=== PATIENT | female | born 1970 | race Caucasian/White ===

== ENCOUNTER 2020-09-14 07:21 | Day surgery (SDC) | payer BC ==
[~2020-09-14 07:21] MED LIST: Glycopyrrolate 0.2 MG/ML SDV ONE; Lactated Ringers 1,000 ML IV SCH; Lidocaine 2% 5 ML SDV ONE; Midazolam 1 MG/ML 2 ML SDV ONE; Ondansetron 4 MG/2 ML SDV ONE; Propofol 200 MG/20 ML SDV ONE; Rocuronium Bromide 50 MG/5 ML Syringe ONE; Sodium Chloride 0.9% 10 ML SDV IV PRN; Sodium Chloride 0.9% 10 ML Syringe FLUSH PRN; Sodium Chloride 0.9% 2.5 ML Syringe FLUSH PRN; ceFAZolin 1 GM in Premix Bag 1 BAG IV ONE; fentaNYL 250 MCG/5 ML SDV ONE
--- NOTE | 2020-09-14 08:06 | PCM.PREANE ---
Preanesthetic Assessment - Anesthesia/Transfusion/Family Hx Anesthesia History: Prior Anesthesia Without Reaction Family History of Anesthesia Reaction: No Transfusion History: No Prior Transfusion(s) - Review of Systems General: No Symptoms Pulmonary: No Symptoms Cardiovascular: No Symptoms Gastrointestinal: No Symptoms Neurological: No Symptoms Other: Reports: None - Physical Assessment NPO Status Date: 09/13/20 Vital Signs: Last Vital Signs Temp 99.0 F 09/14/20 07:25 Pulse 76 09/14/20 07:25 Resp 16 09/14/20 07:25 BP 115/78 09/14/20 07:25 Pulse Ox 100 09/14/20 07:25 Height: 5 ft 4 in Weight: 77.111 kg ASA Class: 2 Mental Status: Alert & Oriented x3 Airway Class: Mallampati = 2 Dentition: Reports: Normal Dentition ROM/Head Extension: Full Lungs: Clear to Auscultation, Normal Respiratory Effort Cardiovascular: Regular Rate, Regular Rhythm - Allergies Allergies/Adverse Reactions: Allergies Allergy/AdvReac Type Severity Reaction Status Date / Time No Known Allergies Allergy Verified 09/08/20 09:28 - Blood Blood Available: No - Anesthesia Plan Pre-Op Medication Ordered: None - Acknowledgements Anesthesia Type Planned: General Anesthesia Pt an Appropriate Candidate for the Planned Anesthesia: Yes Alternatives and Risks of Anesthesia Discussed w Pt/Guardian: Yes Pt/Guardian Understands and Agrees with Anesthesia Plan: Yes PreAnesthesia Questionnaire HEENT History: Reports: Impaired Vision Other HEENT History: wears glasses Cardiovascular History: Reports: Hypertension Respiratory History: Reports: None Gastrointestinal History: Reports: None Genitourinary History: Reports: None [employer]ING ENGINE[employer] CHIEF History: Reports: Musculoskeletal History: Reports: Fracture Other Musculoskeletal History: right ankle Neurological History: Reports: None Psychiatric History: Reports: None Endocrine/Metabolic History: Reports: None Hematologic History: Reports: None Immunologic History: Reports: None Oncologic (Cancer) History: Reports: Breast Other Oncologic History: right breast; had bilateral mastectomy Dermatologic History: Reports: None - Infectious Disease History Infectious Disease History: Reports: None - Past Surgical History HEENT Surgical History: Reports: None Cardiovascular Surgical History: Reports: None GI Surgical History: Reports: None Female Surgical History: Reports: Breast Implant, Section, Mastectomy Other Female Surgeries/Procedures: states had bilateral mastectomy 2019 due to cancer right breast ; had bilateral breast implants 2019 Endocrine Surgical History: Reports: None Musculoskeletal Surgical History: Reports: None Oncologic Surgical History: Reports: Mastectomy Other Oncologic Surgeries/Procedures: bilateral mastectomy 2019 - SUBSTANCE USE Tobacco Use Status *Q: Never Tobacco User - HOME MEDS Home Medications: Home Meds Losartan [Cozaar] 1 tab PO DAILY 09/08/20 [History] Magnesium Oxide/Magnesium [Magnesium] 300 mg PO DAILY 09/08/20 [History] Tamoxifen Citrate 1 tab PO DAILY 09/08/20 [History] - CURRENT (IN HOUSE) MEDS Current Meds: Current Medications Lactated Ringer's (Ringers, Lactated) 1,000 mls @ 125 mls/hr IV ASDIRECTED REED Sodium Chloride (Saline Flush) 10 ml FLUSH ASDIRECTED PRN PRN Reason: Keep Vein Open Sodium Chloride (Saline Flush) 2.5 ml FLUSH ASDIRECTED PRN PRN Reason: Keep Vein Open Sodium Chloride (Normal Saline) 10 ml IV ASDIRECTED PRN PRN Reason: IV Use Discontinued Medications Fentanyl (Sublimaze) Confirm Administered Dose 250 mcg .ROUTE .STK-MED ONE Stop: 09/14/20 07:07 Glycopyrrolate (Robinul) Confirm Administered Dose 0.4 mg .ROUTE .STK-MED ONE Stop: 09/14/20 07:06 Cefazolin Sodium/Dextrose 1 gm (/ Premix) 50 mls @ 100 mls/hr IV ONETIME ONE Stop: 09/14/20 05:29 Lidocaine (Xylocaine-Mpf 2%) Confirm Administered Dose 5 ml .ROUTE .STK-MED ONE Stop: 09/14/20 07:06 Midazolam HCl (Versed 1 Mg/Ml) Confirm Administered Dose 2 mg .ROUTE .STK-MED ONE Stop: 09/14/20 07:07 Ondansetron HCl (Zofran) Confirm Administered Dose 4 mg .ROUTE .STK-MED ONE Stop: 09/14/20 07:06 Propofol (Diprivan 20 Ml) Confirm Administered Dose 200 mg .ROUTE .STK-MED ONE Stop: 09/14/20 07:06 Rocuronium Cincinnatus (Rocuronium Cincinnatus) Confirm Administered Dose 50 mg .ROUTE .STK-MED ONE Stop: 09/14/20 07:06
[2020-09-14 08:26] LABS: BLOOD UREA NITROGEN,BUN 10 mg/dL (7.0-18.0); CARBON DIOXIDE,CO2 29.8 mmol/L (21.0-32.0); CHLORIDE,CL 107 mmol/L (98-107); GLUCOSE RANDOM 91 mg/dL (74-106); POTASSIUM,K 4.2 mmol/L (3.5-5.1); SODIUM,NA 143 mmol/L (136-145)
[2020-09-14] MEDS ORDERED: Lidocaine 1% 20 ML MDV ONE (08:34)
[2020-09-14] MEDS ORDERED: Fluorescein 5 ML Vial ONE (09:51)
[2020-09-14] MEDS ORDERED: Bupivacaine 0.25% 10 ML SDV ONE (09:51)
[2020-09-14] MEDS ORDERED: Methylene Blue 50 MG/10 ML Ampule ONE (09:51)
[2020-09-14] MEDS ORDERED: ceFAZolin 1 GM Vial ONE (10:15)
[2020-09-14] MEDS ORDERED: Sodium Chloride 0.9% 20 ML ONE (10:15)
[2020-09-14] MEDS ORDERED: ePHEDrine 50 MG/ML SDV ONE (10:21)
[2020-09-14] MEDS ORDERED: Furosemide 40 MG/4 ML VIAL ONE (10:31)
[2020-09-14] MEDS ORDERED: fentaNYL 100 MCG/2 ML SDV ONE (10:45)
[2020-09-14] MEDS ORDERED: HYDROmorphone 2 MG/ML Syringe ONE (11:01)
[2020-09-14] MEDS ORDERED: Atropine 0.1 MG/ML 10 ML Syringe IVPUSH PRN ×2 (11:08)
[2020-09-14] MEDS ORDERED: 50% Dextrose in Water 50 ML Syringe IVPUSH PRN (11:08)
[2020-09-14] MEDS ORDERED: Albuterol 0.083% 2.5 MG/3 ML Neb Soln NEB PRN (11:08)
[2020-09-14] MEDS ORDERED: Naloxone 0.4 MG/ML Syringe IVPUSH PRN (11:08)
[2020-09-14] MEDS ORDERED: EPINEPHrine 1:10,000 1 MG/10 ML Syringe IVPUSH PRN (11:08)
[2020-09-14] MEDS ORDERED: fentaNYL 100 MCG/2 ML SDV IVPUSH PRN (11:08)
[2020-09-14] MEDS ORDERED: Metoprolol Tartrate 5 MG/5 ML SDV ONE (11:15)
[2020-09-14] MEDS ORDERED: Belladonna Alkaloids/Opium 16.2-30 MG Supp RECTAL PRN (12:13)
[2020-09-14] MEDS ORDERED: Morphine 4 MG/ML Syringe IVPUSH PRN (12:13)
[2020-09-14] MEDS ORDERED: Acetaminophen/oxyCODONE 325-5 MG Tab PO PRN (12:13)
[2020-09-14] MEDS ORDERED: Ondansetron 4 MG/2 ML SDV IVPUSH PRN (12:13)
[2020-09-14] MEDS ORDERED: Ketorolac 30 MG/ML SDV IVPUSH ONE (12:13)
[2020-09-14] MEDS ORDERED: Promethazine 25 MG/ML SDV IM PRN (12:13)
[2020-09-14] MEDS ORDERED: Acetaminophen 1,000 MG in Premix Bag 1 BAG IV ONE (12:24)
--- NOTE | 2020-09-14 12:25 | PCM.OPNOTE ---
- General Post-Op/Procedure Note Date of Surgery/Procedure: 09/14/20 Operative Procedure(s): LAVH/BSO/cysoscopy Findings: Mobile uterus, small left ovarian cyst. Bilateral patent ureters Pre Op Diagnosis: Endometriosis. Personal history of breast cancer Post-Op Diagnosis: Same Anesthesia Technique: General ET Tube Primary Surgeon: Kierra Roque Tip Tester: Belen Martinez Fluid Replacement, Intraop: 1,900 EBL in mLs: 100 Complications: none known Condition: Good Free Text/Narrative:: Dictation [id number]
--- NOTE | 2020-09-14 12:59 | PCM.POSTAN ---
POST ANESTHESIA ASSESSMENT - MENTAL STATUS Mental Status: Alert, Oriented - VITAL SIGNS Vital Signs: Last Vital Signs Temp 97.9 F 09/14/20 12:10 Pulse 93 09/14/20 12:50 Resp 12 09/14/20 12:50 BP 111/61 09/14/20 12:50 Pulse Ox 96 09/14/20 12:50 - RESPIRATORY Respiratory Status: Respiratory Rate WNL, Airway Patent, O2 Saturation Stable - CARDIOVASCULAR CV Status: Pulse Rate WNL, Blood Pressure Stable - GASTROINTESTINAL GI Status: No Symptoms - POST OP HYDRATION Hydration Status: Adequate & Stable
[2020-09-14] MEDS: Lactated Ringers 1,000 ML IV SCH ×2 (13:17→21:59)
--- NOTE | 2020-09-14 15:24 | OR ---
SURGEON: Kierra Roque M.D. DATE OF PROCEDURE: 09/14/2020 PREOPERATIVE DIAGNOSES: 1. Endometriosis. 2. Personal history of breast cancer. POSTOPERATIVE DIAGNOSES: 1. Endometriosis. 2. Personal history of breast cancer. PROCEDURE: Laparascopic assisted vaginal hysterectomy with bilateral salpingoophorectomy with cystoscopy. PRIMARY SURGEON: Kierra Roque MD ANESTHESIA: General endotracheal anesthesia. FLUIDS: 1900 mL of crystalloid. ESTIMATED BLOOD LOSS: 100 mL. COMPLICATIONS: None known. FINDINGS: Mobile uterus, small left ovarian cyst, bilateral patent ureters. DISPOSITION: The patient to PACU, specimen to pathology. PROCEDURE DETAILS: Janett is a 49-year-old female who has known history of endometriosis, previously had been controlled with continuous suppression of OCP. However, in the past year, she was diagnosed with breast cancer, underwent bilateral mastectomy, and at this time can no longer be on any hormone therapy. Given her age, ongoing difficulties with discomfort with endometriosis and now her personal history of breast cancer, she would like to proceed with definitive intervention in the form of hysterectomy. She would like both tubes and ovaries removed at the time of this procedure. Risks of procedure have been discussed with her. Proper consent obtained. The patient was taken to the operating room where she underwent general endotracheal anesthesia. Was placed in modified dorsal lithotomy position. Was prepped and draped in usual sterile fashion. SCDs to lower extremities. Galaviz to gravity. A time-out was performed. Vaginally, speculum was introduced in the vagina. Posterior lip of the cervix was grasped. A uterine HUMI manipulator was gently introduced. Balloon insufflated. Instruments other than the uterine manipulator were now removed from the vagina. Gloves changed. Attention turned abdominally. Infraumbilically, 0.25% Marcaine was introduced. Please see nurse's notes for total amount of local dispensed during the procedure. A 5 mm infraumbilical midline skin incision was created. Anterior abdominal wall was tented upward. A Veress needle was introduced. Saline hanging drop test was performed. Pneumoperitoneum was achieved. The Veress needle removed. Trocar was introduced. Laparoscope was introduced and peritoneal contents were identified. The right ureter followed by the left ureter was able to be seen peristalsing away from the operative field. Therefore, the left fallopian tube- ovarian complex was grasped and the infundibulopelvic ligament was secured with the LigaSure. Under direct visualization, left lower quadrant followed by right lower quadrant trocars were placed after prepping these regions with 0.25% Marcaine and creating 5 mm skin incision. At this juncture, the LigaSure was introduced and infundibulopelvic ligament was able to be secured, cauterized, and transected followed by the medial leaf of the broad ligament, down through the round ligament, and to the edge of the cardinal ligament. At this point, I was able to create a bladder flap and mobilized the bladder away from the lower uterine segment. There were some adhesions due to the previous hysterectomy, but overall they were able to be lysed fairly easily. A further pedicle on the left side was performed securing the cardinal ligament, down to the base of the cardinal ligament. In similar fashion, this was performed on the patient's right side. The right infundibulopelvic ligament was able to be secured, cauterized, transected through the medial leaf of the broad ligament, through the round ligament, down to the base of the cardinal ligament. Remainder of the bladder flap was able to be created. The bladder was now mobilized nicely away from the lower uterine segment and cervix. The cardinal ligament was able to be secured, cauterized, and transected. The region of the bladder flap was now nicely hydrodissected to further mobilize away from the lower uterine segment and from the cervix. Attention was now turned vaginally. The laparoscopic instruments were removed. Pneumoperitoneum was released. The patient's hips and knees were now further flexed. A weighted specimen was introduced as well as anterior Katrina. Cervix was grasped with Jesus clamp, circumcised with Bovie cautery. Posteriorly, the cervical mucosa was dissected away from underlying peritoneum. Peritoneum was entered sharply. Longer weighted speculum replaced the shorter. In a similar fashion, this was performed to the patient's anterior cul-de-sac. [place] was utilized to mobilize bladder away from the lower uterine segment. The bladder was now released as it had been backfilled with methylene blue. The uterosacral ligament on either side was able to be secured with Shaila clamp, transected, and suture ligated with 2-0 Vicryl. Further pedicle on either side was able to be secured, transected, and suture ligated with 2-0 Vicryl. Bilateral fallopian tubes and ovaries now removed and will be sent to pathology for further analysis. The uterosacral ligaments on either side were plicated to the vaginal apex. The pedicles were inspected and found to be hemostatic. The cuff was now closed using 0 Vicryl in continuous running locked fashion. The cuff was inspected, found to be hemostatic. IV fluorescein and Lasix had been delivered via IV. The Galaviz bulb was now deflated and the Galaviz catheter was removed. Cystoscope was introduced using normal saline as distention media. I was able to visualize the dome of the bladder followed by the trigone. The right ureteral orifice followed by the left ureteral orifice was able to be visualized with the fluorescein dyed urine seen streaming from them helping to ensure ureteral patency. The cystoscope was now removed after draining the bladder and the Galaviz catheter was replaced. Vaginal cuff once again inspected, found to be hemostatic. Attention was turned abdominally. The gloves have been changed. Pneumoperitoneum was once again achieved. The pelvis now copiously irrigated, suction dried. Region along the right uterosacral pedicle was oozing and was able to be cauterized, hemostasis thereafter evident. Region along the posterior peritoneum cuff line had some oozing as well, this was also cauterized. Velma was then utilized along the pelvic floor and along the edge of the pedicles. Hemostasis appeared evident. Relief pressure was decreased to 5 mmHg. Hemostasis once again evident. The pneumoperitoneum was now released. The right and left lower quadrant trocars removed under direct visualization. The laparoscope was removed followed by the infraumbilical trocar after releasing as much of the pneumoperitoneum as possible. The skin edges were reapproximated using 3-0 Monocryl in subcuticular fashion. Sponge, instrument, and needle counts were correct x2. The patient tolerated the procedure well overall. She will go to PACU in stable condition, specimen to pathology. SUSAN / OXANA /[id number] MARKUS
[2020-09-14] MEDS: Acetaminophen/oxyCODONE 325-5 MG Tab PO PRN ×2 (17:15→21:53)
--- NOTE | 2020-09-14 17:35 | PCM.SN.2 ---
- Free Text/Narrative Note: Patient resting comfortably. Pain controlled and denies nausea. Explained intraoperative findings and procedure in detail. Continue postoperative cares. Encouraged to ambulate this evening.
[2020-09-14] MEDS: Ketorolac 30 MG/ML SDV IVPUSH PRN (18:35)
[2020-09-14] MEDS: Docusate Sodium 100 MG Cap PO SCH (21:53)
[2020-09-15] MEDS: Ketorolac 30 MG/ML SDV IVPUSH PRN (01:13)
[2020-09-15] MEDS: Acetaminophen/oxyCODONE 325-5 MG Tab PO PRN ×2 (06:24→10:51)
--- NOTE | 2020-09-15 07:28 | PCM48HPAN ---
Post Anesthesia Note - EVALUATION WITHIN 48HRS OF ANESTHETIC Vital Signs in Normal Range: Yes Patient Participated in Evaluation: Yes Respiratory Function Stable: Yes Airway Patent: Yes Cardiovascular Function Stable: Yes Hydration Status Stable: Yes Pain Control Satisfactory: Yes Nausea and Vomiting Control Satisfactory: Yes Mental Status Recovered: Yes Vital Signs: Last Vital Signs Temp 36.3 C 09/15/20 05:00 Pulse 89 09/15/20 05:00 Resp 15 09/15/20 05:00 BP 95/53 L 09/15/20 05:00 Pulse Ox 99 09/15/20 05:00
[2020-09-15 07:59] LABS: BLOOD UREA NITROGEN,BUN 5 mg/dL (7.0-18.0); CARBON DIOXIDE,CO2 27.2 mmol/L (21.0-32.0); CHLORIDE,CL 108 mmol/L (98-107); GLUCOSE RANDOM 109 mg/dL (74-106); POTASSIUM,K 3.7 mmol/L (3.5-5.1); SODIUM,NA 142 mmol/L (136-145)
[2020-09-15] MEDS: Docusate Sodium 100 MG Cap PO SCH (08:31)
--- NOTE | 2020-09-15 08:46 | PCM.SURGPN ---
- General Info Date of Service: 09/15/20 POD#: 1 Functional Status: Reports: Pain Controlled, Tolerating Diet - Review of Systems General: Reports: Fatigue. Denies: Fever, Weakness Pulmonary: Denies: Shortness of Breath Cardiovascular: Denies: Chest Pain, Palpitations, Lightheadedness Gastrointestinal: Reports: Abdominal Pain (minimal--well controlled surgical pain). Denies: Nausea, Vomiting Genitourinary: Reports: No Symptoms Musculoskeletal: Reports: No Symptoms Skin: Reports: No Symptoms Neurological: Reports: No Symptoms Psychiatric: Reports: No Symptoms - Patient Data Vitals - Most Recent: Last Vital Signs Temp 36.4 C 09/15/20 08:21 Pulse 99 09/15/20 08:21 Resp 18 09/15/20 08:21 BP 99/60 09/15/20 08:21 Pulse Ox 99 09/15/20 05:00 Weight - Most Recent: 77.111 kg I&O - Last 24 Hours: Intake & Output 09/14/20 09/15/20 09/15/20 22:59 06:59 14:59 Intake Total 300 1500 Output Total 300 1800 Balance 0 -300 Lab Results Last 24 Hrs: Laboratory Results - last 24 hr 09/14/20 09/15/20 09/15/20 Range/Units 07:51 07:10 07:10 WBC 11.35 H (4.0-11.0) K/uL RBC 3.20 L (4.30-5.90) M/uL Hgb 9.9 L (12.0-16.0) g/dL Hct 31.4 L (36.0-46.0) % MCV 98.1 H (80.0-98.0) fL MCH 30.9 (27.0-32.0) pg MCHC 31.5 (31.0-37.0) g/dL RDW Std Deviation 49.1 (28.0-62.0) fl RDW Coeff of [place] 14 (11.0-15.0) % Plt Count 246 (150-400) K/uL MPV 9.70 (7.40-12.00) fL Neut % (Auto) 70.7 (48.0-80.0) % Lymph % (Auto) 22.7 (16.0-40.0) % Jerome % (Auto) 5.6 (0.0-15.0) % Eos % (Auto) 0.9 (0.0-7.0) % Baso % (Auto) 0.1 (0.0-1.5) % Neut # (Auto) 8.0 H (1.4-5.7) K/uL Lymph # (Auto) 2.6 H (0.6-2.4) K/uL Jerome # (Auto) 0.6 (0.0-0.8) K/uL Eos # (Auto) 0.1 (0.0-0.7) K/uL Baso # (Auto) 0.0 (0.0-0.1) K/uL Nucleated RBC % 0.0 /100WBC Nucleated RBCs # 0 K/uL Sodium 142 (136-145) mmol/L Potassium 3.7 (3.5-5.1) mmol/L Chloride 108 H (98-107) mmol/L Carbon Dioxide 27.2 (21.0-32.0) mmol/L BUN 5 L (7.0-18.0) mg/dL Creatinine 0.8 (0.6-1.0) mg/dL Est Cr Clr Drug Dosing 73.46 mL/min Estimated GFR (MDRD) > 60.0 ml/min Glucose 109 H (74-106) mg/dL Calcium 8.1 L (8.5-10.1) mg/dL Blood Type A POSITIVE Antibody Screen NEGATIVE Med Orders - Current: Current Medications Belladonna Alkaloids/Opium (B & O Supprettes No. 15a) 1 supp RECTAL Q4H PRN PRN Reason: Abdominal Pain Docusate Sodium (Colace) 100 mg PO BID [facility] Last Admin: 09/15/20 08:31 Dose: 100 mg Documented by: Lactated Ringer's (Ringers, Lactated) 1,000 mls @ 125 mls/hr IV ASDIRECTED [facility] Last Admin: 09/14/20 21:59 Dose: 125 mls/hr Documented by: Ketorolac Tromethamine (Toradol) 30 mg IVPUSH Q6H PRN PRN Reason: Pain (severe 7-10) Stop: 09/19/20 12:14 Last Admin: 09/15/20 01:13 Dose: 30 mg Documented by: Morphine Sulfate (Morphine) 4 mg IVPUSH Q2H PRN PRN Reason: Pain (severe 7-10) Ondansetron HCl (Zofran) 4 mg IVPUSH Q6H PRN PRN Reason: Nausea/Vomiting Last Admin: 09/14/20 14:41 Dose: 4 mg Documented by: Oxycodone/Acetaminophen (Percocet 325-5 Mg) 1 tab PO Q4H PRN PRN Reason: Pain (moderate 4-6) Last Admin: 09/15/20 06:24 Dose: 1 tab Documented by: Oxycodone/Acetaminophen (Percocet 325-5 Mg) 2 tab PO Q4H PRN PRN Reason: Pain (moderate 4-6) Promethazine HCl (Phenergan) 25 mg IM Q6H PRN PRN Reason: Nausea/Vomiting Last Admin: 09/14/20 18:28 Dose: 25 mg Documented by: Sodium Chloride (Saline Flush) 10 ml FLUSH ASDIRECTED PRN PRN Reason: Keep Vein Open Sodium Chloride (Saline Flush) 2.5 ml FLUSH ASDIRECTED PRN PRN Reason: Keep Vein Open Sodium Chloride (Normal Saline) 10 ml IV ASDIRECTED PRN PRN Reason: IV Use Discontinued Medications Albuterol (Proventil Neb Soln) 2.5 mg NEB ONETIME PRN PRN Reason: Wheezing Atropine Sulfate (Atropine 0.1 Mg/Ml) 0.5 mg IVPUSH ASDIRECTED PRN PRN Reason: Hypo-perfusion Atropine Sulfate (Atropine 0.1 Mg/Ml) 1 mg IVPUSH ASDIRECTED PRN PRN Reason: Hypo-Perfusion Bupivacaine HCl (Sensorcaine-Mpf 0.25%) Confirm Administered Dose 20 ml .ROUTE .STK-MED ONE Stop: 09/14/20 09:52 Cefazolin Sodium (Ancef) Confirm Administered Dose 1 gm .ROUTE .STK-MED ONE Stop: 09/14/20 10:16 Dextrose/Water (Dextrose 50% In Water) 50 ml IVPUSH ASDIRECTED PRN PRN Reason: Hypoglycemia Ephedrine Sulfate (Ephedrine Sulfate) Confirm Administered Dose 50 mg .ROUTE .STK-MED ONE Stop: 09/14/20 10:22 Epinephrine HCl (Epinephrine 1:10,000) 1 mg IVPUSH ASDIRECTED PRN PRN Reason: ACLS Guidelines Fentanyl (Sublimaze) Confirm Administered Dose 250 mcg .ROUTE .STK-MED ONE Stop: 09/14/20 07:07 Fentanyl (Sublimaze) Confirm Administered Dose 100 mcg .ROUTE .STK-MED ONE Stop: 09/14/20 10:46 Fentanyl (Sublimaze) 50 - 100 mcg IVPUSH Q5M PRN PRN Reason: Pain Fluorescein Sodium (Ak-Fluor) Confirm Administered Dose 5 ml .ROUTE .STK-MED ONE Stop: 09/14/20 09:52 Furosemide (Lasix) Confirm Administered Dose 40 mg .ROUTE .STK-MED ONE Stop: 09/14/20 10:32 Glycopyrrolate (Robinul) Confirm Administered Dose 0.4 mg .ROUTE .STK-MED ONE Stop: 09/14/20 07:06 Hydromorphone HCl (Dilaudid) Confirm Administered Dose 2 mg .ROUTE .STK-MED ONE Stop: 09/14/20 11:02 Cefazolin Sodium/Dextrose 1 gm (/ Premix) 50 mls @ 100 mls/hr IV ONETIME ONE Stop: 09/14/20 05:29 Last Admin: 09/14/20 13:05 Dose: Not Given Documented by: Lactated Ringer's (Ringers, Lactated) 1,000 mls @ 125 mls/hr IV ASDIRECTED [facility] Last Admin: 09/14/20 08:40 Dose: 125 mls/hr Documented by: Sodium Chloride (Normal Saline) Confirm Administered Dose 20 mls @ as directed .ROUTE .STK-MED ONE Stop: 09/14/20 10:16 Acetaminophen 1,000 mg/ Premix 100 mls @ 400 mls/hr IV NOW ONE Stop: 09/14/20 12:38 Last Admin: 09/14/20 13:05 Dose: Not Given Documented by: Acetaminophen (Ofirmev) Confirm Administered Dose 100 mls @ as directed .ROUTE .STK-MED ONE Stop: 09/14/20 12:33 Last Admin: 09/14/20 12:38 Dose: 400 mls/hr Documented by: Ketorolac Tromethamine (Toradol) 30 mg IVPUSH ONETIME ONE Stop: 09/14/20 12:14 Last Admin: 09/14/20 12:37 Dose: 30 mg Documented by: Lidocaine (Xylocaine-Mpf 2%) Confirm Administered Dose 5 ml .ROUTE .STK-MED ONE Stop: 09/14/20 07:06 Lidocaine HCl (Xylocaine 1%) Confirm Administered Dose 20 ml .ROUTE .STK-MED ONE Stop: 09/14/20 08:35 Last Admin: 09/14/20 13:05 Dose: Not Given Documented by: Methylene Blue (Provayblue) Confirm Administered Dose 50 mg .ROUTE .STK-MED ONE Stop: 09/14/20 09:52 Metoprolol Tartrate (Lopressor) Confirm Administered Dose 5 mg .ROUTE .STK-MED ONE Stop: 09/14/20 11:16 Midazolam HCl (Versed 1 Mg/Ml) Confirm Administered Dose 2 mg .ROUTE .STK-MED ONE Stop: 09/14/20 07:07 Naloxone HCl (Narcan) 0.1 mg IVPUSH ASDIRECTED PRN PRN Reason: Respiratory Depression Ondansetron HCl (Zofran) Confirm Administered Dose 4 mg .ROUTE .STK-MED ONE Stop: 09/14/20 07:06 Propofol (Diprivan 20 Ml) Confirm Administered Dose 200 mg .ROUTE .STK-MED ONE Stop: 09/14/20 07:06 Rocuronium [place] (Rocuronium [place]) Confirm Administered Dose 50 mg .ROUTE .STK-MED ONE Stop: 09/14/20 07:06 - Exam Wound/Incisions: Dressing Dry and Intact General: Alert, Oriented Lungs: Normal Respiratory Effort Cardiovascular: Regular Rate, Regular Rhythm GI/Abdominal Exam: Normal Bowel Sounds, Soft Extremities: Pedal Edema (trace). No: Riley's Sign Skin: Warm, Dry, Intact Psy/Mental Status: Alert, Normal Affect, Normal Mood Sepsis Event Note - Evaluation Sepsis Screening Result: No Definite Risk - Focused Exam Vital Signs: Vital Signs Temp Pulse Resp BP Pulse Ox 09/15/20 08:21 36.4 C 99 18 99/60 09/15/20 05:00 36.3 C 89 15 95/53 L 99 09/15/20 01:12 36.3 C 81 14 90/56 L 98 - Problem List & Annotations (1) Status post total hysterectomy SNOMED Code(s): 600814710, 521628378, 893980820 Code(s): Z90.710 - ACQUIRED ABSENCE OF BOTH CERVIX AND UTERUS Status: Acute Current Visit: Yes - Problem List Review Problem List Initiated/Reviewed/Updated: Yes - My Orders Last 24 Hours: Active Orders 24 hr Category Date Time Status Patient Status [ADT] Routine ADT 09/14/20 12:13 Active Antiembolic Devices [RC] PER UNIT ROUTINE Care 09/14/20 12:13 Active Notify Provider Intake and Out [RC] ASDIRECTED Care 09/14/20 12:13 Active Notify Provider Vital Signs [RC] ASDIRECTED Care 09/14/20 12:13 Active Oxygen Therapy [RC] PRN Care 09/14/20 11:08 Active RT Aerosol Therapy [RC] ASDIRECTED Care 09/14/20 11:08 Active RT Incentive Spirometry [RC] Q2HWA Care 09/14/20 12:13 Active Ready for Discharge [RC] PER UNIT ROUTINE Care 09/15/20 08:39 Ordered Up With Assistance [RC] PER UNIT ROUTINE Care 09/14/20 12:13 Active Up ad [place] [RC] PER UNIT ROUTINE Care 09/14/20 12:13 Active Urinary Catheter Removal [RC] Per Unit Routine Care 09/14/20 12:13 Active Vital Signs [RC] Q4H Care 09/14/20 12:13 Active Regular Diet [DIET] Diet 09/14/20 Dinner Active Acetaminophen/oxyCODONE [Percocet 325-5 MG] Med 09/14/20 12:13 Active 1 tab PO Q4H PRN Acetaminophen/oxyCODONE [Percocet 325-5 MG] Med 09/14/20 12:13 Active 2 tab PO Q4H PRN Belladonna/Opium [B & O Supprettes No. 15A] Med 09/14/20 12:13 Active 1 supp RECTAL Q4H PRN Docusate Sodium [Colace] Med 09/14/20 21:00 Active 100 mg PO BID Ketorolac [Toradol] Med 09/14/20 12:13 Active 30 mg IVPUSH Q6H PRN Lactated Ringers [Ringers, Lactated] 1,000 ml Med 09/14/20 12:15 Active IV ASDIRECTED Morphine Med 09/14/20 12:13 Active 4 mg IVPUSH Q2H PRN Ondansetron [Zofran] Med 09/14/20 12:13 Active 4 mg IVPUSH Q6H PRN Promethazine [Phenergan] Med 09/14/20 12:13 Active 25 mg IM Q6H PRN Heat Therapy [OM.PC] Routine Oth 09/14/20 12:13 Ordered Perineal Care [OM.PC] Per Unit Routine Oth 09/14/20 12:14 Ordered Peripheral IV Discontinue [OM.PC] Routine Oth 09/14/20 12:13 Ordered Sequential Compression Device [OM.PC] Per Unit Routine Oth 09/14/20 12:13 Ordered Resuscitation Status Routine Resus Stat 09/14/20 12:13 Ordered Medication Orders Belladonna Alkaloids/Opium (B & O Supprettes No. 15a) 1 supp RECTAL Q4H PRN PRN Reason: Abdominal Pain Docusate Sodium (Colace) 100 mg PO BID [facility] Last Admin: 09/15/20 08:31 Dose: 100 mg Documented by: Admin: 09/14/20 21:53 Dose: 100 mg Documented by: KASANDRA Lactated Ringer's (Ringers, Lactated) 1,000 mls @ 125 mls/hr IV ASDIRECTED [facility] Last Admin: 09/14/20 21:59 Dose: 125 mls/hr Documented by: Infusion: 09/14/20 21:17 Dose: 125 mls/hr Documented by: Admin: 09/14/20 13:17 Dose: 125 mls/hr Documented by: RADHA Ketorolac Tromethamine (Toradol) 30 mg IVPUSH Q6H PRN PRN Reason: Pain (severe 7-10) Stop: 09/19/20 12:14 Last Admin: 09/15/20 01:13 Dose: 30 mg Documented by: Admin: 09/14/20 18:35 Dose: 30 mg Documented by: RADHA Morphine Sulfate (Morphine) 4 mg IVPUSH Q2H PRN PRN Reason: Pain (severe 7-10) Ondansetron HCl (Zofran) 4 mg IVPUSH Q6H PRN PRN Reason: Nausea/Vomiting Last Admin: 09/14/20 14:41 Dose: 4 mg Documented by: RADHA Oxycodone/Acetaminophen (Percocet 325-5 Mg) 1 tab PO Q4H PRN PRN Reason: Pain (moderate 4-6) Last Admin: 09/15/20 06:24 Dose: 1 tab Documented by: Admin: 09/14/20 21:53 Dose: 1 tab Documented by: Admin: 09/14/20 17:15 Dose: 1 tab Documented by: RADHA Oxycodone/Acetaminophen (Percocet 325-5 Mg) 2 tab PO Q4H PRN PRN Reason: Pain (moderate 4-6) Promethazine HCl (Phenergan) 25 mg IM Q6H PRN PRN Reason: Nausea/Vomiting Last Admin: 09/14/20 18:28 Dose: 25 mg Documented by: RADHA Sodium Chloride (Saline Flush) 10 ml FLUSH ASDIRECTED PRN PRN Reason: Keep Vein Open Sodium Chloride (Saline Flush) 2.5 ml FLUSH ASDIRECTED PRN PRN Reason: Keep Vein Open Sodium Chloride (Normal Saline) 10 ml IV ASDIRECTED PRN PRN Reason: IV Use - Assessment Assessment (Free Text/Narrative):: POD 1 status post LAVH/BSO - Plan Plan (Free Text/Narrative):: Patient doing well overall--pain is controlled. Labs and VS are reassuring. She still needs to void and ambulate. She rested during the night. Once able to do these things, she feels ready to go home. Discharge instructions reviewed. Follow up at [facility] 6 weeks. Discharge to home once able to void/ambulate.
== END 2020-09-15 11:00 | disposition home or self-care (01) ==
LOC: MW.SDS 07:21 → MW.MS 12:26 → MW.SDS 09-15 11:00
PROVIDERS: ATTEND Obstetrics & Gynecology
DX: N83.02 Follicular cyst of left ovary (principal); N83.01 Follicular cyst of right ovary; J45.991 Cough variant asthma; Z85.3 Personal history of malignant neoplasm of breast; Z79.899 Other long term (current) drug therapy; Z98.890 Other specified postprocedural states
CPT/HCPCS: 36415; 58552; 80048; 84703; 85025; 85027; 86850; 86900; 86901; 88307; A9270; J0131; J0690; J1170; J1885; J1940; J2001; J2250; J2405; J2550; J2704; J3010; J3490; J7120; 00944